=== PATIENT | female | born 1960 | race Caucasian/White ===

== ENCOUNTER 2021-11-04 15:34 | Emergency (ER) | payer BC ==
[2021-11-04] MEDS ORDERED: Sodium Chloride 0.9% 10 ML Syringe FLUSH PRN (16:17)
--- NOTE | 2021-11-04 16:27 | EDM.PDOC ---
ED HPI GENERAL MEDICAL PROBLEM - General Chief Complaint: ENT Problem Stated Complaint: [facility] Time Seen by Provider: 11/04/21 15:41 Source of Information: Reports: Patient, Family (), RN Notes Reviewed - History of Present Illness INITIAL COMMENTS - FREE TEXT/NARRATIVE: Has had nose bleed off and on for 3 days, worse earlier today. Did pack her nose with cotton balls soaked with some type of medication [employer]. However just before or after doing this got lightheaded, dizzy, brief 10 to 20 second syncope. Did get lightheaded before she passed out and nauseated. Not on blood thinners. - Related Data Allergies Allergy/AdvReac Type Severity Reaction Status Date / Time No Known Allergies Allergy Verified 11/04/21 16:30 Home Meds: Home Meds Levothyroxine 75 mcg PO [id number] 11/04/21 [History] Meloxicam 15 mg PO BEDTIME 11/04/21 [History] Past Medical History HEENT History: Reports: Other (See Below) Other HEENT History: stapendectomy - Past Surgical History Endocrine Surgical History: Reports: Thyroidectomy Social & Family History - Tobacco Use Tobacco Use Status *Q: Never Tobacco User - Caffeine Use Caffeine Use: Reports: Coffee - Recreational Drug Use Recreational Drug Use: No ED ROS ENT - Review of Systems Review Of Systems: See Below Constitutional: Denies: Fever, Chills HEENT: Reports: Nosebleed Respiratory: Denies: Shortness of Breath, Cough Cardiovascular: Denies: Chest Pain GI/Abdominal: Reports: Nausea. Denies: Abdominal Pain, Vomiting Musculoskeletal: Reports: No Symptoms Neurological: Reports: Dizziness (now better) ED EXAM, ENT - Physical Exam Exam: See Below General Appearance: Alert, No Apparent Distress Nose: Other (packed with cotton balls bilat) Mouth/Throat: Normal Inspection Head: Atraumatic Neck: Supple Respiratory/Chest: No Respiratory Distress, Lungs Clear, Normal Breath Sounds Cardiovascular: Regular Rate, Rhythm Extremities: Normal Inspection, Normal Range of Motion Skin: Warm, Dry, Normal Color, No Rash Course - Vital Signs Last Recorded V/S: Last Vital Signs Temp 98.2 F 11/04/21 15:42 Pulse 68 11/04/21 15:42 Resp 14 11/04/21 15:42 BP 116/64 11/04/21 17:29 Pulse Ox 96 11/04/21 15:42 - Orders/Labs/Meds Orders: Active Orders 24 hr Category Date Time Status Peripheral IV Insertion Adult [OM.PC] Stat Oth 11/04/21 16:17 Ordered Labs: Laboratory Tests 11/04/21 Range/Units 18:00 WBC 6.56 (3.98-10.04) K/mm3 RBC 3.61 L (3.98-5.22) M/mm3 Hgb 11.1 L (11.2-15.7) gm/dl Hct 33.1 L (34.1-44.9) % MCV 91.7 (79.4-94.8) fl MCH 30.7 (25.6-32.2) pg MCHC 33.5 (32.2-35.5) g/dl RDW Std Deviation 38.0 (36.4-46.3) fL Plt Count 276 (182-369) K/mm3 MPV 8.2 L (9.4-12.3) fl Neut % (Auto) 86.0 H (34.0-71.1) % Lymph % (Auto) 8.2 L (19.3-51.7) % Treasure % (Auto) 4.9 (4.7-12.5) % Eos % (Auto) 0.2 L (0.7-5.8) Baso % (Auto) 0.5 (0.1-1.2) % Neut # (Auto) 5.65 (1.56-6.13) K/mm3 Lymph # (Auto) 0.54 L (1.18-3.74) K/mm3 Treasure # (Auto) 0.32 (0.24-0.36) K/mm3 Eos # (Auto) 0.01 L (0.04-0.36) K/mm3 Baso # (Auto) 0.03 (0.01-0.08) K/mm3 Meds: Medications Discontinued Medications Generic Name Dose Route Start Last Admin Trade Name Freq PRN Reason Stop Dose Admin Sodium Chloride 1,000 mls @ 999 mls/hr 11/04/21 16:30 11/04/21 16:36 Normal Saline IV 999 mls/hr ONETIME YURY Administration Sodium Chloride 10 ml 11/04/21 16:17 11/04/21 16:37 Sodium Chloride 0.9% 10 Ml Syringe FLUSH 10 ml ASDIRECTED PRN Administration Keep Vein Open - Re-Assessments/Exams Free Text/Narrative Re-Assessment/Exam: 11/04/21 19:46 No further bleeding while in ED. PT OK to leave self placed packing in until AM. Discharge instr. as documented. Departure - Departure Time of Disposition: 18:27 Disposition: Home, Self-Care 01 Condition: Fair Clinical Impression: Epistaxis - Discharge Information Instructions: Nosebleed, Adult, [id number] Referrals: Donis Corrigan MD [Primary Care Provider] - Forms: ED Department Discharge Additional Instructions: Try leave packing in until morning. Vaseline to distal nose 2 to 3 times daily. Afrin nasal spray 2 or 3 times daily if needed. Pressure if needed for any further bleeding. Your Hgb today is mildly low, 11.1. I do recomend taking an iron supplement for about 2 weeks, have your Hgb rechecked in about 2 weeks. Follow up clinic otherwise as needed. Return to ED as needed. Sepsis Event Note (ED) - Evaluation Sepsis Screening Result: No Definite Risk - Focused Exam Vital Signs: Vital Signs Temp Pulse Resp BP Pulse Ox 11/04/21 17:29 116/64 11/04/21 15:42 98.2 F 68 14 128/62 96 - My Orders Last 24 Hours: My Active Orders 11/04/21 16:17 Peripheral IV Insertion Adult [OM.PC] Stat - Assessment/Plan Last 24 Hours: My Active Orders 11/04/21 16:17 Peripheral IV Insertion Adult [OM.PC] Stat
[2021-11-04] MEDS ORDERED: Sodium Chloride 0.9% 1,000 ML IV SCH (16:30)
== END 2021-11-04 18:50 | disposition home or self-care (01) ==
LOC: SUPCPDRO 15:34 → JD.ED 15:34
DX: R04.0 Epistaxis (principal); Z79.899 Other long term (current) drug therapy
CPT/HCPCS: 36415; 85025; 99283; J7030; 99284